=== PATIENT | male | born 2005 | race African-American/Black ===

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

== ENCOUNTER 2024-02-13 13:02 | Emergency (ER) | payer MEDICAID, OTHER ==
[~2024-02-13] VITALS: Ht 175.3 cm; Wt 75.0 kg
[~2024-02-13 13:02] MED LIST: IBUP-2028 MT
[2024-02-13 13:04] VITALS: TEMP 98.2; O2SAT 100
[2024-02-13 13:58] VITALS: PULSE 78; RESP 22
[2024-02-13] MEDS: ALBUTEROL (0.083%) 2.5MG/3ML NEB HHN ONE (13:58)
[2024-02-13] MEDS: METHYLPREDNISOLONE SOD SUCC 125MG/2ML (ACT-O-VIAL) IM STA (14:11)
[2024-02-13] MEDS ORDERED: P50 MT (14:35)
[2024-02-13] MEDS ORDERED: ALBU18HF2 IH (14:35)
[2024-02-13 14:57] VITALS: BP 150/75; PULSE 103; RESP 16; O2SAT 100
== END 2024-02-13 15:00 | disposition home or self-care (01) ==
LOC: ER 13:02
DX: J45.901 Unspecified asthma with (acute) exacerbation (principal); J02.9 Acute pharyngitis, unspecified
CPT/HCPCS: 87430; 87070; 71045; 94640; 96372; 99284; J2919; Z7610 ×5

== ENCOUNTER 2024-04-02 21:50 | Emergency (ER) | payer MEDICAID ==
[~2024-04-02] VITALS: Ht 188 cm; Wt 75.0 kg
[~2024-04-02 21:50] MED LIST changes: +ALBU18HF2 IH; +P50 MT
[2024-04-02 21:52] VITALS: O2SAT 99
[2024-04-02] MEDS ORDERED: TOPUD PO (23:41)
[2024-04-02] MEDS ORDERED: IBUP-2028 MT (23:41)
[2024-04-03] MEDS: IBUPROFEN 400MG TABLET PO ONE (00:21)
[2024-04-03] MEDS: ACETAMINOPHEN 325MG TABLET PO ONE (00:21)
[2024-04-03] MEDS: ONDANSETRON 4MG ODT PO ONE (00:22)
[2024-04-03 00:31] VITALS: BP 116/72; PULSE 78; RESP 16; TEMP 36.89184; O2SAT 99
== END 2024-04-03 00:32 | disposition home or self-care (01) ==
LOC: ER 21:50
DX: S09.90XA Unspecified injury of head, initial encounter (principal); J45.909 Unspecified asthma, uncomplicated; Z79.899 Other long term (current) drug therapy; X58.XXXA Exposure to other specified factors, initial encounter; Y93.89 Activity, other specified; Y92.89 Other specified places as the place of occurrence of the external cause; Y99.8 Other external cause status
CPT/HCPCS: 99284; 70450; 70486; Q0162

== ENCOUNTER 2024-11-01 21:14 | Emergency (ER) | payer MEDICAID ==
[~2024-11-01] VITALS: Ht 188 cm; Wt 76.0 kg
[~2024-11-01 21:14] MED LIST changes: +TOPUD PO
[2024-11-01] MEDS: ALBUTEROL (0.083%) 2.5MG/3ML NEB HHN ONE (21:50)
[2024-11-01] MEDS: IPRATROPIUM BROMIDE (0.02%) 0.5MG/2.5ML NEB HHN ONE (21:51)
[2024-11-01 21:52] VITALS: PULSE 89; RESP 24; O2SAT 98
[2024-11-01 21:58] VITALS: TEMP 36.6
[2024-11-01 22:00] LABS: BASOPHILS % 0.9 % (0.0-2.0); EOSINOPHILS % 4.5 % (0.0-5.0); HEMATOCRIT. 45.6 % (42.0-52.0); HEMOGLOBIN. 14.8 g/dL (14.0-18.0); LYMPHOCYTES % 33.5 % (20.0-50.0); MEAN CORPUSCULAR HEMOGLOBIN 27.8 pg (28.0-32.0); MEAN CORPUSCULAR HGB CONC 32.5 g/dL (31.0-37.0); MEAN CORPUSCULAR VOLUME 85.8 fL (80.0-94.0); MEAN PLATELET VOLUME 9.9 fl (7.4-10.4); MONOCYTES % 6.1 % (2.0-8.0); PLATELET 271 x1000/uL (130-400); RED BLOOD CELL COUNT 5.32 mill/uL (4.7-6.1); WHITE BLOOD COUNT 9.1 x1000/uL (4.5-11.0)
[2024-11-01] MEDS: METHYLPREDNISOLONE SOD SUCC 125MG/2ML (ACT-O-VIAL) IM STA (22:04)
[2024-11-01 22:10] LABS: CHLORIDE 106 mEq/L (98-107); POTASSIUM 3.2 mEq/L (3.5-5.1); SODIUM 141 mEq/L (136-145)
[2024-11-01 22:11] LABS: CARBON DIOXIDE 24 mEq/L (21-32)
[2024-11-01 22:12] LABS: CALCIUM 9.6 mg/dL (8.7-10.4)
[2024-11-01 22:17] LABS: GLUCOSE 74 mg/dL (70-105); UREA NITROGEN BLOOD 6 mg/dL (9-23)
[2024-11-01 22:36] LABS: TROPONIN I HIGH SENSITIVITY < 4 ng/L (3.0-53)
[2024-11-01] MEDS ORDERED: P20 MT (22:53)
[2024-11-01 23:50] VITALS: BP 137/85; PULSE 96; RESP 14; O2SAT 99
== END 2024-11-02 00:30 | disposition home or self-care (01) ==
LOC: ER 21:14
DX: J45.901 Unspecified asthma with (acute) exacerbation (principal); Z79.899 Other long term (current) drug therapy
CPT/HCPCS: 80048; 85025; 84484; 36415; 71045; 94640; 93005; 96372; 99291; J2919; Z7610 ×4; 94070